=== PATIENT | female | born 1970 | race Caucasian/White ===

== ENCOUNTER → 2021-05-30 | Outpatient (CLI) | payer OTHER | LOC: KOH-I 12:05 | DX: M25.561 Pain in right knee (principal); G89.29 Other chronic pain; M17.11 Unilateral primary osteoarthritis, right knee; M25.461 Effusion, right knee | CPT/HCPCS: 73562 ==

== ENCOUNTER → 2021-06-21 | Outpatient (CLI) | payer OTHER | LOC: KOH-I 06-14 08:45 | DX: M25.561 Pain in right knee (principal); S82.141A Displaced bicondylar fracture of right tibia, initial encounter for closed fracture; S83.241A Other tear of medial meniscus, current injury, right knee, initial encounter | CPT/HCPCS: 73721 ==